=== PATIENT | male | born 1980 | race Caucasian/White ===

== ENCOUNTER → 2020-07-10 09:10 | Outpatient (CLI) | payer SELFPAY ==
--- NOTE | ~2020-07-10 | XR_ITS ---
XR foot LT min 3V, XR ankle LT min 3V 07/10/2020 10:12 (accession [id number]), 07/10/2020 10:11 (accession [id number]) Indication: Left foot and ankle pain Procedure: 4 views left foot and 4 views left ankle Comparison: No prior studies for comparison. Findings: There are 2 screws transfixing the talus. Ankle mortise intact. No acute fracture or trauma tic malalignment. 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 No significant soft tissue abnormality. No foreign bodies. Impression: 1: No acute fracture. Reviewed, dictated and finalized at location B. TECH Impression: 1: No acute fracture. Impression: 1: No acute fracture.
== END ==
PROVIDERS: PCP Pediatrics; Visit Provider Pediatrics
DX: M79.672 Pain in left foot (principal)
CPT/HCPCS: 73610; 73630

== ENCOUNTER → 2020-07-17 09:34 | Outpatient (CLI) | payer OTHER, SELFPAY ==
--- NOTE | ~2020-07-17 | MR_ITS ---
EXAMINATION: MR ankle LT wo con DATE: 07/17/2020 10:17 INDICATION: Lateral left ankle and hindfoot pain. TECHNIQUE: Magnetic resonance imaging (MRI) of the left ankle was performed without intravenous contr ast. Sequences included sagittal, coronal, and axial proton-density weighted fast spin echo without a nd with fat saturation. COMPARISON: None. FINDINGS: Medial ankle ligaments: Is loss of the normally more sharply defined striated pattern of the deep deltoid ligament consistent and spring ligament complex are normal. Lateral ankle ligaments: There is metallic magnetic field artifact surrounding a Screws which extend posterosuperiorly from the lateral process of the talus near the location of the talar insertion of the anterior talofibular ligament. There is some heterotopic ossification along th e anterior talofibular ligament which appears thickened with mild increased signal consistent with li [place] scarring related to chronic sprain. There is mild cystic change along the anterior aspect of the lateral malleolus between the fibular insertion of the anterior talofibular ligament and intact appe aring anterior inferior tibiofibular ligament. The calcaneofibular ligament appears mildly thickened consistent with mild scarring related to chronic sprain. The posterior talofibular and posterior infe rior tibiofibular ligaments are normal. Tendons: Mild increased intrasubstance signal without significant thickening of the Achilles tendon cyst with minimal tendinosis without discrete tear and without peritendinitis. Minimal enthesopathic ossificati on at the distal most Achilles tendon. The peroneus longus and brevis tendons are normal. There is a tear of the lateral fibular insertion of the superior peroneal retinaculum allowing partial subluxati on of the peroneus longus tendon across the lateral rim of the flat retromalleolar groove. The tibial is anterior and extensor hallucis longus and extensor digitorum longus tendons are normal. The tibial is posterior, flexor digitorum longus and flexor hallucis longus tendons are normal. Plantar fascia: Lanter aponeurosis is normal. Bones/other: Bone alignment is normal. No acute fracture or pathologic marrow replacing process. There is marrow e sudha at the lateral malleolus centered around the previously noted cystic change likely sequela of ch ronic lateral ankle sprain as previously detailed. Mild subtalar osteoarthritis with prominent marrow edema on both sides of the joint space. There is irregular cortical contour at the medial side of th e articulation between the sustentaculum conor and the anterior neck of the talus which could represen t response to chronic high-grade chondromalacia although differential would include a fibrous coaliti on. Small low signal intensity bone island at the navicula. Additional mild osteoarthritis at the tar sherin metatarsal joints. Utilized intrinsic musculature of the mid and hindfoot is unremarkable. Fluid: Physiologic amount fluid in the joint spaces. No tenosynovitis, bursitis or other abnormal fluid charmaine ections. IMPRESSION: 1. 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 2. Pair of the fixation screws for indeterminate purpose entering the talus at the lateral process of the footplate of the anterior talofibular ligament. Correlate with surgical history. 3. Prominent talar and calcaneal marrow edema at both sides of the subtalar joint which could be rela siddharth to osteoarthritis. Regular cortical contour at the anterior talus along the middle facet of the s ubtalar joint which could be related to high-grade chondromalacia or potentially a chronic fibrocarti laginous talocalcaneal coalition. 4. Tear of the lateral fibular insertion of the superior peroneal r
== END ==
PROVIDERS: PCP Pediatrics; Visit Provider Pediatrics
DX: M25.572 Pain in left ankle and joints of left foot (principal); M79.89 Other specified soft tissue disorders
CPT/HCPCS: 73721

== ENCOUNTER 2021-08-10 10:21 | Outpatient (RCR) | payer OTHER, SELFPAY ==
[2021-08-10 15:10] VITALS: BP 128/98; PULSE 81; RESP 18; TEMP 36.4; O2SAT 98
[2021-08-10] MEDS: ACETAMINOPHEN 325 MG TABLET 650 MG PO (15:12)
[2021-08-10] MEDS: diphenhydrAMINE HCl CAP 25 MG CAPSULE PO (15:13)
[2021-08-10] MEDS: FAMOTIDINE 20 MG TABLET PO (15:13)
[2021-08-10 16:19] VITALS: BP 126/90
== END 2021-08-10 17:00 ==
LOC: AMCINF 10:21
PROVIDERS: Visit Provider Internal Medicine Hematology & Oncology
DX: U07.1 COVID-19 (principal); I10 Essential (primary) hypertension
CPT/HCPCS: A9270; M0243; Q0244

== ENCOUNTER → 2021-11-16 14:24 | Outpatient (CLI) | payer OTHER, SELFPAY ==
--- NOTE | ~2021-11-16 | MR_ITS ---
EXAMINATION: MR lumbar spine wo con DATE: 11/16/2021 14:56 INDICATION: Low back pain. Paresthesias. TECHNIQUE: Magnetic resonance imaging (MRI) of the lumbar spine was performed without intravenous con trast. Sequences included sagittal T2-weighted FSE, sagittal T2-weighted FS FSE, sagittal T1-weighted FSE, and axial T2-weighted FSE. COMPARISON: None FINDINGS: There is 5 degrees dextrocurvature of thoracolumbar spine. Vertebral body heights are howard l. There is mildly decreased disc height at L4-L5 and moderately decreased disc height at L5-S1 with endplate remodeling. There is instrumentation from fusion procedures of the sacroiliac joints. The di stal spinal cord signal intensity is normal. The conus medullaris is at L2. The following disc levels are specifically discussed: L1-L2: There is a left central extrusion. There is mild bilateral facet joint osteoarthritis. There i s no neural foraminal stenosis. There is mild central canal stenosis. L2-L3: The disc does not extend beyond the endplate margin. There is moderate bilateral facet joint o steoarthritis. There is no neural foraminal stenosis. There is no central canal stenosis. L3-L4: There is a left subarticular zone extrusion. There is severe bilateral facet joint osteoarthri tis. There is mild bilateral neural foraminal stenosis. There is mild central canal stenosis. L4-L5: The disc is bulging and has an annular fissure. There is severe right and moderate left facet joint osteoarthritis. There is mild bilateral neural foraminal stenosis. There is no central canal st enosis. L5-S1: The disc is bulging and has an annular fissure. There is mild bilateral facet joint osteoarthr itis. There is mild right and moderate left neural foraminal stenosis. There is mild central canal st enosis. IMPRESSION: 1. Moderate lumbar spondylosis. Reviewed, dictated and finalized at location A.
== END ==
PROVIDERS: PCP Family Medicine; Visit Provider Family Medicine
DX: R29.2 Abnormal reflex (principal); R20.2 Paresthesia of skin; M47.896 Other spondylosis, lumbar region
CPT/HCPCS: 72148